=== PATIENT | male | born 1945 | race Caucasian/White ===

== ENCOUNTER 2018-10-17 08:46 | Inpatient (IN) ==
--- NOTE | 2018-09-20 15:23 | PAT Medication Instructions ---
Medication Instructions Date of Service September 20, 2018 Home Medications Artery Cleanse 1 tsp PO BID Nattokinase 1 tab PO BID Tissue&Bone Supplement 2 tab PO BID cod liver oil 2 cap PO QAM garlic 500 mg PO BID omega 7-bqv-bcz-fish oil [Fish Oil] 3 cap PO BID pyridoxine (vitamin B6) [Vitamin B-6] 100 mg PO QAM vitamin E 400 unit PO Q2D STOP taking 2 weeks before surgery (or as soon as possible if surgery is within 2 weeks) Artery Cleanse 1 tsp PO BID Nattokinase 1 tab PO BID Tissue&Bone Supplement 2 tab PO BID cod liver oil 2 cap PO QAM garlic 500 mg PO BID omega 1-hcy-ixd-fish oil [Fish Oil] 3 cap PO BID vitamin E 400 unit PO Q2D Other Notes If you have any questions please call us at [phone] or [phone] or [phone] or [phone]
--- NOTE | 2018-09-21 09:56 | Anesthesiology Consultation ---
Date of Service September 21, 2018 Assessment & Plan (1) Encounter for pre-operative examination: - PCP: 09/29/18: thyroid ultrasound ordered for evaluation of abnormal CXR findings."I do not think this will be a contraindication to proceeding with the right hip surgery.. There are no medical contraindications to proceeding with right total hip replacement." - Thyroid u/s done 09/29/18 noting 2 dominant thyroid nodules in the right lobe and isthmus as detailed above. Both nodules meet sonographic criteria for fine- needle aspiration. Per PCP, further thyroid workup will be done after hip surgery. Chart Review Chart Review: Acceptable Risk for Surgery and Patient seen in Pre Admission [facility] Teaching & Discussion Pre-Anesthesia Teaching/Discussion Notes: Instructed NPO after midnight before surgery,except medications with 15 cc of water. Medication instructions provided according to the PAT guidelines. History Surgery Operation Date: 10/17/18 12:15 Proposed Procedures p Right Hip Total Arthroplasty - Posterior - Efrain Morse DO Operation Date: 11/02/18 07:00 Proposed Procedures p Total Hip Arthroplasty Uncemented - Alexi Rosario MD Height/Weight Height: 5 ft 8 in Weight: 117.3 kg Allergies Allergy/AdvReac Type Severity Reaction Status Date / Time Sulfa (Sulfonamide Allergy HIVES Verified 09/25/18 14:51 Antibiotics) Medications Home Medications Medication Instructions Recorded Confirmed Last Taken cod liver oil 2 cap PO QAM 09/19/18 09/25/18 Unknown garlic 500 mg PO BID 09/19/18 09/25/18 Unknown pyridoxine (vitamin B6) [Vitamin 100 mg PO QAM 09/19/18 09/25/18 Unknown B-6] vitamin E (dl, acetate) 100 unit 100 units PO DAILY cap 09/21/18 09/21/18 Unknown capsule amlodipine 2.5 mg tablet 2.5 mg PO DAILY #90 tab 09/25/18 09/25/18 Unknown fluocinonide 0.05 % topical 1 appln TOPICAL BID PRN #60 gm 09/25/18 09/25/18 Unknown ointment ketoconazole 2 % topical cream 1 appln TOPICAL DAILY #60 gm 09/25/18 09/25/18 Unknown omega 8-xwc-gzq-fish oil 1,000 mg 1 cap PO DAILY #90 cap 09/25/18 09/25/18 Unknown (120 mg-180 mg) capsule triamcinolone acetonide 0.1 % 1 appln TOPICAL BID PRN #454 gm 09/25/18 09/25/18 Unknown topical cream Past Medical History Medical History Hearing deficit RIGHT HEARING AID Hyperlipidemia Hypertension Osteoarthritis Exercise / Class Metabolic Activity III < 4 Walking/Shop/Light housework (USES CANE PRN) Past Family History Family History Mother FHx: myocardial infarction, Onset Age: 69 Father FHx: myocardial infarction, Onset Age: 69 Past Surgical History Surgical History History of tonsillectomy Past Anesthesia History No Hx of Anesthesia Complications and No Family Hx of Anesthesia Complications History of PONV No Hx of PONV and No Hx of Motion Sickness Social History Smoking Status: Never smoker Do You Dip or Chew Tobacco: No Hx Alcohol Use: No Hx Substance Use: No substance use type: does not use Review of Systems Patient denies chest pain, shortness of breath, reflux, cough, wheezing, palpitations. Physical Exam Vital Signs VITALS BP 135/77 P 67 TEMP 98.4 SP02 93%RA RESP 16 PHYSICAL Full neck and c-spine range of motion. Full TMJ range of motion. TMD 3 finger breaths Mallampati Score 3 Dentition: full dentures upper/lower Lungs: clear throughout to auscultation Cardiac: regular rate and rhythm, no murmurs noted Spine: normal Carotid arteries: negative bruit Extremities: no edema *Long, thin broussard- does not wish to trim/shave due to mu-ism reasons ([facility]). Discussed with Dr. Ab vilchis to proceed with surgery. Testing Laboratory Results 09/21/18 10:30 09/21/18 10:30 09/21/18 09/21/18 09/21/18 10:30 10:30 10:30 PT 10.9 INR 1.1 APTT 29.0 Hemoglobin A1c 5.5 Urine Color Yellow Urine Appearance Clear Urine pH 6.5 Ur Specific [place] 1.026 Urine Protein Negative Urine Glucose (UA) Negative Urine Ketones Negative Urine Nitrite Negative Ur Leukocyte Esterase Negative Blood Type Antibody Screen 09/21/18 10:30 PT INR APTT Hemoglobin A1c Urine Color Urine Appearance Urine pH Ur Specific [place] Urine Protein Urine Glucose (UA) Urine Ketones Urine Nitrite Ur Leukocyte Esterase Blood Type A Positive Antibody Screen NEGATIVE Electrocardiogram Date: 09/21/18 SR with PSVCs at 69bpm. Chest X-Ray Date: 09/21/18 The heart is top normal in size. Slightly elevated interstitium without focal lung consolidations to suggest pneumonia. Prominence of the superior mediastinal soft tissues. This could represent an enlarged thyroid or normal vessels (report sent to PCP for their review). The lungs are mildly hyperexpanded. Consider follow-up thyroid ultrasound for further evaluation to assess for a substernal goiter. Other Testing Thyroid ultrasound: 09/30/15: The thyroid gland is mildly atrophic and heterogeneous in echotexture. There are 2 dominant thyroid nodules in the right lobe and isthmus as detailed above. Both nodules meet sonographic criteria for fine-needle aspiration.
--- NOTE | 2018-09-21 11:26 | XRay Report ---
XR chest Pre-admission PA/Lat HISTORY: Preop. COMPARISON: None. FINDINGS: The heart is top normal in size. No pleural effusions. No pneumothorax. Slightly elevated i nterstitium without focal lung consolidations to suggest pneumonia. No evidence for pulmonary edema. Prominence of the superior mediastinal soft tissues. This could represent an enlarged thyroid or norm al vessels. The lungs are mildly hyperexpanded. IMPRESSION: 1. The lungs are slightly hyperexpanded with mildly elevated interstitial markings. This is likely ch ronic. 2. Prominence of the superior mediastinal soft tissues. This could represent an enlarged thyroid glan d are normal pulmonary vessels. Consider follow-up thyroid ultrasound for further evaluation to asses s for a substernal goiter. Electronically signed by: Daniel Shannon M.D. 09/21/2018 11:25 AM
[2018-09-21 12:35] LABS: Basophils # (auto) 0.04 K/uL (0-0.2); Basophils % (auto) 0.5 %; Eosinophils # (auto) 0.24 K/uL (0-0.5); Hematocrit (blood only) 38.3 % (42-52); Hemoglobin 13.4 g/dL (14.0-18.0); Immature Granulocytes # (auto) 0.01 K/uL (0.00-0.02); Immature Granulocytes % (auto) 0.1 %; Lymphocytes % (auto) 16.1 %; Mean Corpuscular Volume 88.7 fL (80-100); Monocytes # (auto) 0.91 K/uL (0.11-0.59); Monocytes % (auto) 11.3 %; Neutrophils # (auto) 5.58 K/uL (1.4-6.5); Platelet Count 207 K/uL (130-400); RDW Coefficient of Variation 13.2 % (11.5-14.5); RDW Standard Deviation 43.3 fL (36.4-46.3); Red Blood Count 4.32 M/uL (4.7-6.1); White Blood Count 8.08 K/uL (4.8-10.8)
[2018-09-21 12:44] LABS: INR 1.1 (0.9-1.1); Partial Thromboplastin Ratio 1.1; Prothrombin Time 10.9 Seconds (9.0-12.0)
[2018-09-21 12:46] LABS: Appearance Urine Clear (Clear); Bilirubin Urine Negative (Negative); Blood Urine Negative (Negative); Color Urine Yellow; Glucose Urine UA Negative (Negative); Ketones Urine Negative (Negative); Leukocyte Esterase Urine Negative (Negative); Nitrite Urine Negative (Negative); Protein Urine Negative (Negative); Specific Gravity Urine 1.026 (1.000-1.030); Urobilinogen Urine Negative (Negative); pH Urine 6.5 (4.5-7.5)
[2018-09-21 12:59] LABS: Albumin Level 3.5 gm/dl (3.4-5.0); BUN Creatinine Ratio 21.2 (10-20); Creatinine Clr Calc Pharmacy 77.6 ml/min; Potassium 4.3 mmol/L (3.5-5.1)
[2018-09-21 13:34] LABS: Estimated Average Glucose 111 mg/dl; Hemoglobin A1C 5.5 % (4.5-5.6)
--- NOTE | 2018-10-16 21:34 | History & Physical Report ---
Date of Service October 16, 2018 Assessment & Plan (1) Degenerative joint disease of right hip: I have indicated the patient for right total hip replacement. The risks, benefits and complications of surgery were explained to the patient which include but not limited to infection, acute blood loss, DVT/PE, injury to nerves, vessels, bone, soft tissue, arthrofibrosis, chronic pain, failure of the prosthesis, hip dislocation, leg length discrepancy, need for additional surgery, cardiac and pulmonary events and . The patient wished to proceed with surgery and informed consent was obtained at this time. We will plan for ASA BID post-operatively for DVT prophylaxis. Upon discharge the patient will be discharged home with home health services. Appropriate clearances by PCP were obtained. History of Present Illness Chief Complaint: Right hip/djd Primary Care Provider: Damaso Chung MD The patient is a 73 year old male who presents with complaints of severe right hip pain and DJD. The patient has failed outpatient conservative treatments to this point which included NSAIDs, home exercise, walking program. The patient declined IA hip injection. The patient's pain and limited function have progressed to the point where they severely hinder their activities of daily living and they no longer tolerate exercise programs. They are requesting to proceed with total hip replacement surgery. Allergies Allergy/AdvReac Type Severity Reaction Status Date / Time Sulfa (Sulfonamide Allergy HIVES Verified 09/25/18 14:51 Antibiotics) Home Medications Home Medications Medication Instructions Recorded Confirmed Type cod liver oil 2 cap PO QAM 09/19/18 09/25/18 History garlic 500 mg PO BID 09/19/18 09/25/18 History pyridoxine (vitamin B6) [Vitamin 100 mg PO QAM 09/19/18 09/25/18 History B-6] vitamin E (dl, acetate) 100 unit 100 units PO DAILY cap 09/21/18 09/21/18 History capsule amlodipine 2.5 mg tablet 2.5 mg PO DAILY #90 tab 09/25/18 09/25/18 Rx fluocinonide 0.05 % topical 1 appln TOPICAL BID PRN #60 gm 09/25/18 09/25/18 Rx ointment ketoconazole 2 % topical cream 1 appln TOPICAL DAILY #60 gm 09/25/18 09/25/18 Rx omega 8-eyv-trh-fish oil 1,000 mg 1 cap PO DAILY #90 cap 09/25/18 09/25/18 Rx (120 mg-180 mg) capsule triamcinolone acetonide 0.1 % 1 appln TOPICAL BID PRN #454 gm 09/25/18 09/25/18 Rx topical cream Past Med/Surg History Medical History Hearing deficit RIGHT HEARING AID Hyperlipidemia Hypertension Osteoarthritis Surgical History History of tonsillectomy Family History Mother FHx: myocardial infarction, Onset Age: 69 Father FHx: myocardial infarction, Onset Age: 69 Social History Preferred Language: Yoruba Communication Ability: Effective Beliefs That Will Affect Care: None Current Living Situation: Spouse and Family Other Information That Helps Us Care for You: No Feels Safe at Home: Yes Safety Concerns: Feels Safe At This Time Smoking Status: Never smoker Do You Dip or Chew Tobacco: No Second Hand Exposure: No Tobacco Cessation Education Requested by Patient: No Hx Alcohol Use: No Hx Substance Use: No Review of Systems Review of Systems: All systems reviewed & are unremarkable except as noted in HPI & below Constitutional: as per Subjective / HPI Physical Exam Physical Exam: RLE NVSI +EHL/FHL/TA/GS SILT grossly, +2 DP pulse, compartments soft NT, limited painful ROM, antalgic gait. Constitutional: WD/WN, vitals as above Eyes: PERRL, conjunctivae normal, anicteric sclerae ENMT: external ear and nose normal, oropharynx normal Neck: trachea midline, no thyromegaly Respiratory: normal respiratory effort, lungs clear to auscultation Cardiovascular: RRR, no murmur, no edema Gastrointestinal (Abdomen): normal bowel sounds, soft, nontender, no hepatosplenomegaly Musculoskeletal: no cyanosis or clubbing, extremities motor strength 5/5 Skin: no rashes, warm and dry Neurologic: patellar DTR's 2+ bilat, sensation intact Psychiatric: A+Ox3, euthymic affect Lymphatic: no cervical or axillary lymphadenopathy Results & Data Diagnostic Findings Multiple views of the hip demonstrates severe DJD with complete loss of the joint space. +osteophytes, +sclerosis, +subchondral cysts.
[~2018-10-17 08:46] MED LIST: ACETAMINOPHEN 500 MG TAB PO SCH; BUPIVACAINE 0.5 % 5 MG/1 ML PF 10ML VIAL ONE; CEFAZOLIN 2000MG 2,000 MG/15 ML SYR IV SCH; FAMOTIDINE 20 MG TAB PO SCH; GABAPENTIN 300 MG PO SCH; LR 500ML BOLUS, THEN 15ML/HR IV SCH; ROPIVACAINE 0.5% HCL/PF 150 MG, BUPIVACAINE 0.5% MPF 30 ML, EPINEPHrine 30MG/30ML (OR U... INFIL SCH; TRANEXAMIC ACID 1,000 MG **IV Intra-op IV SCH; TRANEXAMIC ACID 1,000 MG **IV Pre-op IV SCH; dexAMETHasone 4 MG TAB PO SCH
--- NOTE | 2018-10-17 09:04 | History & Physical Bridge Note ---
Date of Service October 17, 2018 History & Physical Bridge Note I have examined the patient, reviewed the History & Physical and in the interval since the performance of the History & Physical I have noted the following changes of clinical significance: no changes noted
[2018-10-17] MEDS ORDERED: fentaNYL citrate 100 MCG/2 ML VIAL ONE (09:54)
[2018-10-17] MEDS ORDERED: LIDOCAINE HCL 2% 2 ML VIAL/AMP(20MG/ML) INFIL ONE (09:54)
[2018-10-17] MEDS ORDERED: DEXAMETHASONE SOD INJ 4 MG/ML VIAL ONE (09:54)
[2018-10-17] MEDS ORDERED: MIDAZOLAM HCL 1 MG/ML 2ML VIAL ONE (09:54)
[2018-10-17] MEDS ORDERED: ONDANSETRON INJ 2 MG/ML 2 ML VIAL ONE (09:54)
[2018-10-17] MEDS ORDERED: PROPOFOL IV EMULSION 10 MG/ML 20 ML VIAL IV ONE ×4 (09:54→13:37)
[2018-10-17] MEDS ORDERED: ePHEDrine sulfate 50 MG/ML AMP IV PRN (10:13)
[2018-10-17] MEDS ORDERED: fentaNYL citrate 100 MCG/2 ML VIAL IV PRN (10:13)
[2018-10-17] MEDS ORDERED: ATROPINE SULFATE 0.1 MG/ML 10ML SYR IV PRN (10:13)
[2018-10-17] MEDS ORDERED: HYDROmorphone INJ 1 MG/ML SYRINGE IV PRN (10:13)
[2018-10-17] MEDS ORDERED: BACITRACIN INJ 50,000 UNIT VIAL ONE (10:14)
[2018-10-17] MEDS ORDERED: ORTHO JOINT ANESTHETIC ONE (10:14)
--- NOTE | 2018-10-17 13:18 | Post Operative Brief Note ---
Immediate Post Op Note v1 Date of Surgery October 17, 2018 Pre & Post Diagnosis Operation Date: 10/17/18 11:40 Pre-Op Diagnosis: RIGHT HIP OSTEOARTHRITIS Post-Op Diagnosis: RIGHT HIP OSTEOARTHRITIS Operation Date: 11/02/18 07:00 <No data on this case meets the specified criteria> Procedure Operation Date: 10/17/18 11:40 Actual Procedures p Right Posterior Total Hip Arthroplasty(Right) - Efrain Morse DO Operation Date: 11/02/18 07:00 <No data on this case meets the specified criteria> Surgeon Efrain Morse DO Rhythmic Gymnastics Coach Jb Wylie Estimated Blood Loss 175 Findings Consistent with Post-Op Diagnosis Fluids 2000 cc LR Specimens femoral head Anesthesia Type Spinal MAC Complications none Disposition Disposition: Recovery Room Overlapping Procedure I was present for: the critical portions of procedure. I was immediately available: during the entire case. Back up surgeon: was not required during procedure.
--- NOTE | 2018-10-17 13:33 | Operative Report ---
Post Operative Report Pre & Post Diagnosis Operation Date: 10/17/18 11:40 Pre-Op Diagnosis: RIGHT HIP OSTEOARTHRITIS Post-Op Diagnosis: RIGHT HIP OSTEOARTHRITIS Operation Date: 11/02/18 07:00 <No data on this case meets the specified criteria> Procedure Operation Date: 10/17/18 11:40 Actual Procedures p Right Posterior Total Hip Arthroplasty(Right) - Efrain Morse DO Operation Date: 11/02/18 07:00 <No data on this case meets the specified criteria> Surgeon Efrain Morse DO Deck Engineer Jb Wylie Estimated Blood Loss 175 Findings Consistent with Post-Op Diagnosis Fluids 2000 cc LR Specimens Femoral head Anesthesia Type Spinal MAC Complications none Indications The patient is a 73-year-old male who presents with severe progressive right hip DJD who has failed outpatient conservative treatments. I indicated the patient for a total hip replacement and the risks and benefits were explained in detail which included but not limited to infection, bleeding, blood clot, damage to surrounding bone, nerves, vessels, soft tissue, hip dislocation, failure of the prosthesis, leg length discrepancy, need for additional surgery and . The patient agreed to proceed with replacement of the hip and informed consent was obtained. Appropriate clearances were obtained. Description of Procedure COMPONENTS USED: [employer] hip system: Acetabulum size 54, femur size 15 extended offset, femoral head 36+3.5, liner 5436, acetabular screw 35 mm x 1. Following induction of adequate spinal anesthesia, the patient was transferred to the OR table and placed in lateral decubitus position with left hip down. The right hip was prepped and draped in the typical sterile fashion. A timeout was performed, patient identified and site tayler confirmed. Appropriate antibiotics were given. A standard posterolateral/Kota-Langenbeck incision was made. Subcutaneous tissue was sharply dissected. Electrocautery was utilized for hemostasis. The fascia was incised throughout the length of the wound and retracted with the Charnley retractor. The bursa was taken down and the short external rotators were identified. The piriformis was tagged with #1 Vicryl. The short external rotators and capsule were divided from the posterior aspect of the femur using electrocautery. The posterior capsule was tagged with #1 Vicryl. Both external rotators and posterior capsule were swept posterior and protected, along with protecting the sciatic nerve. The hip was dislocated by flexion and internally rotation in a controlled manner and exposure of the femoral neck was gained with an old-style Hohmann and a blunt cobra retractor. A femoral cutting guide was utilized for making the appropriate level femoral neck cut with reciprocating saw. The femoral head was removed, measured and reserved on the back table. Next, attention was turned to the acetabulum. A posterior and anterior offset retractor was placed to gain adequate exposure. Acetabular labrum as well as posterior capsule elements were removed using electrocautery and forceps. Fovea centralis was cleared of all soft tissue. Sequential reaming was performed starting at 48 mm and carried up to a 53 mm and decision was made to proceed with impaction of a 54 mm trabecular metal cup. This was impacted and held using a single 35 mm bone screw. The trial acetabular liner was placed at this time. Next, attention was turned to the proximal femur where a Bovie and pickup was used to further clear short external rotators from their insertion on the femur. Box osteotome and canal finder was used to gain access to the femoral canal and the lateral reamer on power was used to further open the proximal lateral canal. Sequentially rasping was carried up to a 15 which gave good fit and fill of the proximal femur. A trial reduction was carried out with a extended offset femoral neck component a 36 mm femoral head. The trial reduction was stable in all degrees of rotation with no [id number] impingement. The hip was dislocated, trial components were removed and access to the acetabulum was re-established. The trial liner was removed and the cup was irrigated to ensure all debris was removed. The final acetabular liner was inserted and properly seated in the cup. Access to the femur was once more gained and the size 15 femoral stem with extended offset was impacted into position. The hip was once more assessed with the 36+3.5 mm femoral head. Stability was accessed and found to be excellent with equal leg lengths. The hip was dislocated for the last time and the final 36+3.5 ceramic femoral head was impacted in place and the hip was reduced. Range of motion was checked once again and found to be stable. A Betadine soak was performed. After 3 minutes, the hip was once more irrigated with copious sterile saline solution with bacitracin. The merritt-incisional soft tissue was injected utilizing [place] ortho mix which includes a combination of Ropivicaine 0.5% 150mg, Bupivicaine 0.5%/Epinephrine 1:200,000 30ml, Toradol 30mg, Dexamethasone 4mg, Ketamine 10mg, Clonidine 100mcg and NSS 30ml Orthomix solution. The piriformis, external rotators and capsule were repaired to the greater trochanter through bone tunnels using #5 FiberWire. The fascia was closed using #1 Vicryl, subcutaneous tissue was closed using 2-0 Vicryl, and skin was closed with rita. Sterile dressings were applied which included Ashlee incisional VAC. The patient tolerated the procedure well and was transported to PACU in stable condition. Due to the complex nature of the procedure, the entire surgery was performed with the operational assistance of Jb Wylie PA-C. The tutoring assistant, under direct supervision, was involved in the actual performance of all aspects of the surgical procedure including patient positioning, hemostasis, tissue retraction, instrument management and wound closure. I attest to the content of the Intraoperative Record and any orders documented therein. Any exceptions are noted below.
--- NOTE | 2018-10-17 14:08 | XRay Report ---
XR hip 1V RT w pelvis HISTORY: 73 years-old Male IN PACU - A/P PELVIS and LATERAL HIP right hip total joint arthroplasty. History of degenerative joint disease COMPARISON: None available TECHNIQUE: AP view of the pelvis with AP and crosstable lateral views of the right hip FINDINGS: Moderate left hip osteoarthritis. Degenerative changes noted about the imaged lumbar spine. Right hip total joint arthroplasty demonstrates satisfactory alignment without acute fracture or retained fore ign body identified. Lateral skin rita are noted along with expected postsurgical soft tissue swel ling and deep tissue air with surgical drainage catheter. IMPRESSION: Satisfactory alignment of the right hip total joint arthroplasty. The above report was generated using voice recognition software. It may contain grammatical, syntax o r spelling errors. Electronically signed by: Lance Cotter M.D. 10/17/2018 2:07 PM
--- NOTE | 2018-10-17 14:20 | Anesthesiology Progress Note ---
Date of Service October 17, 2018 Anesthesia Post Procedure Vital Signs Vital Signs: Temp Pulse Pulse Resp BP Pulse Ox 10/17/18 14:15 65 14 130/73 98 10/17/18 14:05 64 10 L 126/69 94 10/17/18 13:55 74 13 117/51 L 98 10/17/18 13:48 36.3 C L 68 15 104/50 L 100 10/17/18 10:11 71 18 165/84 H 97 10/17/18 09:37 36.5 C 76 20 181/94 H 95 Pain Intensity Right Hip: Pain Intensity: 0 Transfer of Care Handoff Completed per policy Notes Mental Status: alert / awake / arousable and participated in evaluation Patient Amnestic to Procedure: Yes Nausea / Vomiting: adequately controlled Pain: adequately controlled Airway Patency, RR, SpO2: stable & adequate BP & HR: stable & adequate Hydration State: stable & adequate Anesthetic Complications: no major complications apparent
[2018-10-17] MEDS ORDERED: MAGNESIUM HYDROXIDE SUSP 30 ML UDC PO PRN (14:48)
[2018-10-17] MEDS ORDERED: BISACODYL 10 MG SUPP PR PRN (14:48)
[2018-10-17] MEDS ORDERED: METOCLOPRAMIDE HCL INJ 5 MG/ML 2 ML VIAL IV PRN (14:48)
[2018-10-17] MEDS ORDERED: NALOXONE HCL 0.4 MG/1 ML VIAL/CARP IV PRN (14:48)
[2018-10-17] MEDS ORDERED: SODIUM CHLORIDE 0.9% 1000ML 1,000 ML IV SCH (14:48)
[2018-10-17] MEDS ORDERED: ONDANSETRON INJ 2 MG/ML 2 ML VIAL IV PRN (14:48)
[2018-10-17] MEDS ORDERED: HYDROmorphone INJ 0.5 MG/0.5 ML SYR IV PRN (14:48)
[2018-10-17] MEDS ORDERED: OXYCODONE HCL IR 5 MG TAB (IMMEDIATE RELEASE) PO PRN (14:48)
--- NOTE | 2018-10-17 15:39 | Orthopedic Progress Note ---
Date of Service October 17, 2018 Assessment & Plan (1) Degenerative joint disease of right hip: Status post right total hip arthroplasty -Ancef x24 -DVT prophylaxis: SCDs, teds, ASA twice daily -Weight-bear as tolerates right lower extremity -Posterior hip precautions -PT /OT -A.m. labs -Postop x-ray demonstrate a well aligned well fixed orthopedic prosthesis without fracture or dislocation. -DC planning Subjective Post Operative Progress Note Patient seen sitting up in bed, comfortable, denies complaints, pain well controlled, no acute issues. Review of Systems Review of Systems: All systems reviewed & are unremarkable except as noted in HPI & below Constitutional: as per Subjective / HPI Physical Exam Physical Exam: RLE NVSI +EHL/FHL/TA/GS SILT grossly, +2 DP pulse, compartments soft NT, dressing cdi. Constitutional: WD/WN, vitals as above Results & Data Vital Signs (Past 12 Hours) Vital Signs Temp Pulse Pulse Resp BP Pulse Ox 10/17/18 15:09 36.4 C L 46 L 20 145/69 H 97 10/17/18 14:35 36.5 C 60 18 129/65 94 10/17/18 14:15 65 14 130/73 98 10/17/18 14:05 64 10 L 126/69 94 10/17/18 13:55 74 13 117/51 L 98 10/17/18 13:48 36.3 C L 68 15 104/50 L 100 10/17/18 10:11 71 18 165/84 H 97 10/17/18 09:37 36.5 C 76 20 181/94 H 95
[2018-10-17] MEDS: KETOROLAC TROMETHAMINE 15 MG/ML VIAL IV SCH ×2 (15:45→21:20)
[2018-10-17] MEDS: CEFAZOLIN 2000MG 2,000 MG/15 ML SYR IV SCH (15:45)
[2018-10-17] MEDS: ACETAMINOPHEN 500 MG TAB PO SCH (18:19)
[2018-10-17] MEDS ORDERED: Nursing to Pharmacy Communication ONE (20:06)
[2018-10-17] MEDS ORDERED: AMLODIPINE BESYLATE 5 MG TAB PO SCH (21:00)
[2018-10-17] MEDS ORDERED: SENNA 8.6 MG TAB PO SCH (21:00)
[2018-10-17] MEDS: ASPIRIN 325 MG ECTAB PO SCH (21:19)
[2018-10-17] MEDS: DOCUSATE SODIUM 100 MG CAP PO SCH (21:19)
[2018-10-18] MEDS: CEFAZOLIN 2000MG 2,000 MG/15 ML SYR IV SCH (00:01)
[2018-10-18] MEDS: KETOROLAC TROMETHAMINE 15 MG/ML VIAL IV SCH ×2 (04:01→08:20)
[2018-10-18] MEDS: ACETAMINOPHEN 500 MG TAB PO SCH ×2 (05:22→13:41)
[2018-10-18 07:12] LABS: Basophils # (auto) 0.01 K/uL (0-0.2); Basophils % (auto) 0.1 %; Eosinophils # (auto) 0.02 K/uL (0-0.5); Eosinophils % (auto) 0.1 %; Hematocrit (blood only) 33.5 % (42-52); Hemoglobin 11.7 g/dL (14.0-18.0); Immature Granulocytes # (auto) 0.04 K/uL (0.00-0.02); Immature Granulocytes % (auto) 0.3 %; Lymphocytes # (auto) 1.11 K/uL (1.2-3.4); Mean Corpuscular Hgb Conc 34.9 g/dL (32-36); Mean Corpuscular Volume 88.2 fL (80-100); Mean Platelet Volume 10.3 fL (7.4-10.4); Monocytes # (auto) 1.31 K/uL (0.11-0.59); Monocytes % (auto) 8.3 %; Neutrophils # (auto) 13.33 K/uL (1.4-6.5); Neutrophils % (auto) 84.2 %; Platelet Count 170 K/uL (130-400); RDW Coefficient of Variation 13.2 % (11.5-14.5); RDW Standard Deviation 42.4 fL (36.4-46.3); White Blood Count 15.82 K/uL (4.8-10.8)
[2018-10-18 07:46] LABS: BUN Creatinine Ratio 21.5 (10-20); Calcium 8.3 mg/dl (8.5-10.1); Creatinine Clr Calc Pharmacy 80.2 ml/min; Est GFR (African American) 83.7; Est GFR (Non-African American) 72.2; Potassium 4.4 mmol/L (3.5-5.1)
[2018-10-18] MEDS: DOCUSATE SODIUM 100 MG CAP PO SCH (08:19)
[2018-10-18] MEDS: ASPIRIN 325 MG ECTAB PO SCH (08:19)
--- NOTE | 2018-10-18 08:28 | Orthopedic Progress Note ---
Date of Service October 18, 2018 Assessment & Plan (1) Degenerative joint disease of right hip: Status post right total hip arthroplasty POD#1 -Ancef x24 -DVT prophylaxis: SCDs, teds, ASA twice daily -Weight-bear as tolerates right lower extremity -Posterior hip precautions -PT /OT -A.m. labs - hgb 11.7 -Postop x-ray demonstrate a well aligned well fixed orthopedic prosthesis without fracture or dislocation. -DC planning - pending PT eval, home with Subjective Post Operative Progress Note Patient seen sitting up in bed, comfortable, denies complaints, pain well controlled, no acute issues. Review of Systems Review of Systems: All systems reviewed & are unremarkable except as noted in HPI & below Constitutional: as per Subjective / HPI Physical Exam Physical Exam: RLE NVSI +EHL/FHL/TA/GS SILT grossly, +2 DP pulse, compartments soft NT, dressing cdi. Constitutional: WD/WN, vitals as above Results & Data Vital Signs (Past 12 Hours) Vital Signs Temp Pulse Resp BP Pulse Ox 10/18/18 07:25 36.6 C 64 16 126/72 96 10/18/18 03:52 36.6 C 64 14 136/73 94 10/17/18 23:36 36.5 C 58 L 14 135/72 94
[2018-10-18] MEDS ORDERED: MULTIVITAMIN TAB PO SCH (09:00)
[2018-10-18] MEDS ORDERED: AMLODIPINE BESYLATE 5 MG TAB PO SCH (09:00)
[2018-10-18] MEDS ORDERED: CeleBREX 200 MG CAP PO SCH (21:00)
--- NOTE | 2018-10-20 14:36 | Discharge Summary ---
Date of Service October 20, 2018 Admission HPI Per Admitting Provider The patient is a 73 year old male who presents with complaints of severe right hip pain and DJD. The patient has failed outpatient conservative treatments to this point which included NSAIDs, home exercise, walking program. The patient declined IA hip injection. The patient's pain and limited function have progressed to the point where they severely hinder their activities of daily living and they no longer tolerate exercise programs. They are requesting to proceed with total hip replacement surgery. Principal Diagnosis Right total hip replacement Discharge Exam RLE NVSI +EHL/FHL/TA/GS SILT grossly, +2 DP pulse, compartments soft NT, dressing cdi. Constitutional WD/WN, vitals as above Discharge Data Allergies Allergy/AdvReac Type Severity Reaction Status Date / Time Sulfa (Sulfonamide Allergy HIVES Verified 10/17/18 09:25 Antibiotics) Consultations 10/18/18 08:00 Consult Case Management - Discharge Planning Routine Procedures Performed Operation Date: 10/17/18 11:40 Actual Procedures p Right Posterior Total Hip Arthroplasty(Right) - Efrain Morse DO Operation Date: 11/02/18 07:00 <No data on this case meets the specified criteria> Hospital Course (1) Degenerative joint disease of right hip: The patient is a 73-year-old male who presents with long standing history of severe right hip DJD and failed outpatient conservative treatments including NSAIDs, bracing, injections and home walking/exercise program. The patient's symptoms have progressed to the point where it has been difficult to perform even normal activities of daily living. I indicated the patient for a right total total arthroplasty, the risks, benefits and complications of the procedure include but not limited to infection, bleeding, damage to bone, nerves, vessels, surrounding soft tissue, may develop blood clots, loss of function, leg length discrepancy, dislocation, failure of the components, loosening of the components, the need for additional surgery and . The patient wished to proceed with surgery at this time and informed consent was obtained. Hospital Course: On 10/17/2018 the patient was taken to the operating room, adequate anesthesia administered and underwent a right total hip arthroplasty. The patient tolerated the procedure well and was taken to the PACU in stable condition. Post-operatively the patient was started on a DVT ppx medication and given appropriate IV antibiotics. Consults were placed to physical therapy, occupational therapy and case management. On POD#1, the patient did well overnight and their pain was well controlled. Labs were drawn and the Hgb was 11.7. The patient progressed well with PT. Dressings were changed at this time and the incision was clean, dry and intact. The patients hospital stay was relatively uneventful and they were deemed stable by the orthopedic team and consultants to be discharged home with home health on 10/18/2018. Discharge Instructions: Upon discharge the patient may weight bear as tolerated through their operative extremity. They were instructed to keep the incision clean and dry at all times. The patient may shower but should not submerge the incision, avoid bathing, pools and hot tubes. The patient was given a script for pain medication and should take as instructed. The patient was given a script for DVT ppx ASA 325 mg twice daily and should take as directed. The patient was instructed to not drive or travel for long distances until cleared to do so. If the patient develops any symptoms of fevers, chills, nausea, vomiting, increased redness, swelling, pain or drainage from the surgical site, they should notify the office and/or proceed to the nearest emergency room. The patient should follow up in 10-14 days after surgery for their routine post-operative follow-up appointment and should call the office to confirm the date and time. Status post right total hip arthroplasty POD#1 -Ancef x24 -DVT prophylaxis: SCDs, teds, ASA twice daily -Weight-bear as tolerates right lower extremity -Posterior hip precautions -PT /OT -A.m. labs - hgb 11.7 -Postop x-ray demonstrate a well aligned well fixed orthopedic prosthesis without fracture or dislocation. -DC planning - pending PT eval, home with Total Time Total Time Spent Total Time Spent (In Minutes): 30 minutes Total Time Includes: Examination of the Patient, Discharge Planning, Medication Reconciliation and Communication With Other Providers Discharge Plan Discharge Items Patient Disposition: Home - Home Health Services Reason For Visit: RIGHT HIP OSTEOARTHRITIS Discharge Diagnosis: Right total hip replacement Condition: Good Discharge Goals: Decrease discomfort, Improve function, Increase independence and Therapeutic intervention Activity: Per 'Additional Instructions' section Lifting: Wait until after follow-up appointment Bathing Comment: No bathing, pools or hot tubs Sexual Activity: Wait until after follow-up appointment Exercise/Sports: Wait until after follow-up appointment Driving/Machine Use Comment: No driving heavy machinery till cleared by your surgeon Weightbearing: Right weightbearing Non-emergency contact: Primary Care Provider and Surgeon Call non-emergency contact if: you have any medication questions, your symptoms worsen, your pain is not controlled, your pain is worsening, your pain is unusual for you, your pain is concerning for you, you have a fever, your temperature is above 101, your wound has increased redness, your wound has increased drainage and your wound pain has increased Follow-up/Referrals: Damaso Chung MD [Primary Care Provider] - Diet: Regular Addtl Provider Instructions: ACTIVITY RECOMMENDATIONS: SELF CARE INSTRUCTIONS AFTER TOTAL HIP REPLACEMENT Until the incision and soft tissues around your hip have healed, there is a possibility that the hip prosthesis could dislocate. A. Observe the following precautions to prevent dislocation: 1. Don't bend your hip greater than 90 degrees. 2. Avoid crossing your legs or ankles while standing or lying. 3. Sit with your feet placed 6 inches apart. 4. When sitting, keep your knees below your hips. Sit on a firm surface, avoid deep, soft chairs and couches. Use an elevated toilet seat in the bathroom. 5. Don't bend over at the waist. Use a long handled shoehorn and a sock aid to help you put on your shoes and socks. A petrologist can help you draft roller picker objects that are too high or too low to reach. 6. Keep car riding to a minimum for at least one month after surgery. B. Your balance may be shaky for a while. Use crutches or a walker until directed by your doctor. C. Use hand rails when walking on stairs. D. Wear low heeled shoes with non-slip soles. E. Be sure that your floors are free of things that could trip you - throw rugs, electrical cords, small objects. Avoid wet and waxed floors, especially with crutches and canes. F. Try to walk several times a day with rest periods between. G. Continue with all the exercises taught to you in the hospital. Again, make walking a part of your daily routine. SPECIAL CARE INSTRUCTIONS: VERY IMPORTANT TO READ AND REVIEW A. You may still be at risk for phlebitis and blood clots. 1. Wear surgical stockings (FABIEN hose) for 2 weeks after surgery to improve circulation and reduce swelling. 2. Take Aspirin 325mg twice daily for 4 weeks or as directed by your doctor. This is your blood thinner. 3. High risk patients may be prescribed a stronger blood thinner if necessary. 4. If you are on Coumadin normally, your family doctor/quality improvement consultant should monitor your blood work. Expect a phone call the day of or the day after bloodwork is drawn to adjust your dosage. B. You must take antibiotics before having dental work, bladder, bowel and other surgery. Your doctor will provide you with a permanent card to carry describing precautions. C. Call [facility] if you have a fever, redness or swelling around the incision, cloudy drainage from incision, or sudden increase in pain in your hip, not relieved by your regular pain medication. D. Please call the office at if you have any concerns or questions about your operation or recovery. * YOU MAY SHOWER, NO TUB BATHS UNTIL CLEARED BY YOUR DOCTOR. * WEAR FABIEN HOSE 20 HOURS PER DAY FOR 2 WEEKS. * YOU SHOULD USE A WALKER OR CRUTCHES FOR 2-4 WEEKS. THIS WILL HELP PREVENT STRAIN ON YOUR HIP MUSCLE AND ALLOW IT TO HEAL PROPERLY. YOU MAY WEAN TO A CANE TOLERATED. * MOST PATIENTS WILL HAVE HOME NURSING FOR THERAPY. IF YOU DECIDE TO DO OUTPATIENT PHYSICAL THERAPY, PLEASE SCHEDULE THIS 3 TIMES PER WEEK. *PREVENA incisional vac is a special dressing covering your incision. This dressing provides a sterile dry environment while you are healing. The dressing is to be left in place for 7 days post-operatively. Your home nurse or surgeon will remove. If you develop any redness or blisters or have any questions notify your surgeon immediately. FOLLOW UP VISIT: If appointment is not already scheduled: Please call [facility] to make a follow-up appointment for 2 weeks after your surgery at . Prescriptions: New celecoxib [Celebrex] 200 mg Capsule 200 mg PO BID PRN (Reason: pain) Qty: 28 RF: 0 acetaminophen [Tylenol Extra Strength] 500 mg Tablet 1,000 mg PO Q8 PRN (Reason: pain) Qty: 90 RF: 0 aspirin 325 mg Tablet,Delayed Release (Dr/Ec) 325 mg PO BID Qty: 56 RF: 0 oxycodone 5 mg Tablet 5 mg PO Q6H MDD 6 tabs PRN (Reason: pain) Qty: 30 RF: 0 sennosides [Senokot] 8.6 mg Tablet 17.2 mg PO HS PRN (Reason: Constipation) Qty: 28 RF: 0 Continued vitamin E (dl, acetate) 100 unit capsule 100 units PO DAILY RF: 0 amlodipine 2.5 mg tablet 2.5 mg PO DAILY Qty: 90 RF: 3 fluocinonide 0.05 % ointment 1 appln topical BID PRN (Reason: rash) Qty: 60 RF: 3 ketoconazole 2 % cream 1 appln topical DAILY Qty: 60 RF: 3 omega 5-zef-jeb-fish oil [Fish Oil] 1,000 mg (120 mg-180 mg) capsule 1 cap PO DAILY Qty: 90 RF: 0 triamcinolone acetonide 0.1 % cream 1 appln topical BID PRN (Reason: contact dermatitis) Qty: 454 RF: 3 cod liver oil Capsule 2 cap PO QAM RF: 0 garlic 500 mg Capsule 500 mg PO BID RF: 0 pyridoxine (vitamin B6) [Vitamin B-6] 100 mg Tablet 100 mg PO QAM RF: 0 Stand-Alone Forms: [facility] Discharge Orders: Discharge Order (Routine); Ordered 10/18/18 Ordered By: Efrain Morse Admission Data Admit Date/Time: 10/17/18 13:53 Attending Provider: Efrain Morse Admit Provider: Efrain Morse Primary Care Provider: Damaso Chung Other Providers: Alexi Rosario Service: Surgical Services Other Interventions: Discharge Summary Assessment (RN) Last Done: 10/18/18 09:13 DC Date/Time DO NOT enter until pt leaves facility: 10/18/18 14:15
== END 2018-10-18 14:15 | disposition home health service (06) | DRG 470 ==
LOC: ASU 08:46 → 3E 13:53